=== PATIENT | male | born 1970 | race American Indian/Alaskan Native ===

== ENCOUNTER 2016-12-29 20:15 | Inpatient (IN) | payer SELFPAY ==
[2016-12-29] MEDS ORDERED: ASPIRIN PO ONE (20:58)
[2016-12-29 21:23] LABS: Basophils % (Auto) 0.9 % (0.0-1.8); Eosinophils % (Auto) 2.3 % (0.0-4.3); Mean Corpuscular HGB Conc 31 % (32-34); Platelet Count 269 K/mm3 (140-440); Red Blood Count 6.37 M/mm3 (3.65-5.03); Red Cell Distribution Width 14.9 % (13.2-15.2)
[2016-12-29 21:24] LABS: Hematocrit 41.4 % (35.5-45.6); Hemoglobin 12.6 gm/dl (11.8-15.2); Mean Corpuscular Volume 65 fl (84-94)
[2016-12-29 21:25] LABS: Mean Corpuscular Hemoglobin 20 pg (28-32)
[2016-12-29 21:33] LABS: INR 1.02 (0.87-1.13); Partial Thromboplastin Time 25.8 Sec. (24.2-36.6)
[2016-12-29 21:39] LABS: Alanine Aminotransferase 11 units/L (7-56); Albumin 4.6 g/dL (3.9-5); Albumin/Globulin Ratio 1.2 %; Alkaline Phosphatase 57 units/L (35-129); Anion Gap 17 mmol/L; Blood Urea Nitrogen 18 mg/dL (9-20); Calcium 9.8 mg/dL (8.4-10.2); Carbon Dioxide 29 mmol/L (22-30); Chloride 99.7 mmol/L (98-107); Glucose 101 mg/dL (75-100); Potassium 4.5 mmol/L (3.6-5.0); Sodium 141 mmol/L (137-145); Total Protein 8.5 g/dL (6.3-8.2)
--- NOTE | 2016-12-29 22:07 | Emergency Department Report ---
ED Chest Pain HPI - General Chief Complaint: Chest Pain Stated Complaint: CHEST PAIN Time Seen by Provider: 12/29/16 22:06 Source: patient Mode of arrival: Ambulatory Limitations: No Limitations - History of Present Illness Initial Comments: Patient is a 46-year-old male who presents with crushing substernal chest pain. Has been going on for the last 2 days. Patient states that the pain as an 8 out 10 nothing that he does makes it better or worse with a pressure-type of feeling this concept. It radiates to his left shoulder. He denies having any shortness of breath with the pain. He also states that he has a family history of heart attacks and his grandfather, his father and his older brother have all around at the age of 60 for massive MIs. The patient denies any nausea or vomiting. Severity scale (0 -10): 8 - Related Data Home Medications Medication Instructions Recorded Confirmed Last Taken No Known Home Medications [No 12/29/16 12/29/16 Unknown Reported Home Medications] Allergies Allergy/AdvReac Type Severity Reaction Status Date / Time No Known Allergies Allergy Verified 12/29/16 22:07 Heart Score - HEART Score History: Moderately suspicious EKG: Non-specific Age: 45-65 Risk factors: 1-2 risk factors Troponin: < normal limit HEART Score: 4 ED Review of Systems ROS: Stated complaint: CHEST PAIN Other details as noted in HPI Constitutional: denies: chills, fever Eyes: denies: eye pain, eye discharge, vision change ENT: denies: ear pain, throat pain Respiratory: denies: cough, shortness of breath, wheezing Cardiovascular: chest pain. denies: palpitations Endocrine: no symptoms reported Gastrointestinal: denies: abdominal pain, nausea, diarrhea Genitourinary: denies: urgency, dysuria Musculoskeletal: denies: back pain, joint swelling, arthralgia Skin: denies: rash, lesions Neurological: denies: headache, weakness, paresthesias Psychiatric: denies: anxiety, depression Hematological/Lymphatic: denies: easy bleeding, easy bruising ED Past Medical Hx - Past Medical History Previous Medical History?: Yes Hx GERD: Yes Additional medical history: gout - Surgical History Past Surgical History?: No - Social History Smoking Status: Never Smoker Substance Use Type: None - Medications Home Medications: Home Medications Medication Instructions Recorded Confirmed Last Taken Type No Known Home Medications [No 12/29/16 12/29/16 Unknown History Reported Home Medications] ED Physical Exam - General Limitations: No Limitations General appearance: alert, in no apparent distress - Head Head exam: Present: atraumatic, normocephalic - Eye Eye exam: Present: normal appearance - ENT ENT exam: Present: mucous membranes moist - Neck Neck exam: Present: normal inspection - Respiratory Respiratory exam: Present: normal lung sounds bilaterally. Absent: respiratory distress - Cardiovascular Cardiovascular Exam: Present: regular rate, normal rhythm. Absent: systolic murmur, diastolic murmur, rubs, gallop - GI/Abdominal GI/Abdominal exam: Present: soft, normal bowel sounds - Rectal Rectal exam: Present: deferred - Extremities Exam Extremities exam: Present: normal inspection - Back Exam Back exam: Present: normal inspection - Neurological Exam Neurological exam: Present: alert, oriented X3 - Psychiatric Psychiatric exam: Present: normal affect, normal mood - Skin Skin exam: Present: warm, dry, intact, normal color. Absent: rash ED Course Vital Signs 12/29/16 12/29/16 12/30/16 20:51 21:27 01:44 Temperature 98.3 F Pulse Rate 65 58 L 64 Respiratory 14 13 19 Rate Blood Pressure 156/96 O2 Sat by Pulse 99 99 97 Oximetry - Reevaluation(s) Reevaluation #1: 12/30/16 03:05 Patient states that he does not want a CT angiogram. Due to the risks of IV contrast. Explained benefits of CT angiogram the patient still refused. Patient is alert and oriented and can make his own decisions. AMY score - Amy Score Age > 65: (0) No Aspirin use within the Past 7 Days: (0) No 3 or more CAD Risk Factors: (1) Yes 2 or more Angina events in past 24 hrs: (0) No Known CAD with more than 50% Stenosis: (0) No Elevated Cardiac Markers: (0) No ST Deviation Greater than 0.5mm: (0) No AMY Score: 1 ED Medical Decision Making - Lab Data Result diagrams: 12/29/16 21:11 12/29/16 21:11 Laboratory Results - last 24 hr 12/29/16 12/29/16 12/29/16 21:11 21:11 21:11 WBC 10.0 RBC 6.37 H Hgb 12.6 Hct 41.4 MCV 65 L MCH 20 L MCHC 31 L RDW 14.9 Plt Count 269 Lymph % (Auto) 31.1 [place] % (Auto) 6.4 Eos % (Auto) 2.3 Baso % (Auto) 0.9 Lymph # 3.1 [place] # 0.6 Eos # 0.2 Baso # 0.1 Seg Neutrophils % 59.3 Seg Neutrophils # 6.0 PT 13.9 INR 1.02 APTT 25.8 Sodium Potassium Chloride Carbon Dioxide Anion Gap BUN Creatinine Estimated GFR BUN/Creatinine Ratio Glucose Calcium Total Bilirubin AST ALT Alkaline Phosphatase Total Creatine Kinase Troponin T < 0.010 Total Protein Albumin Albumin/Globulin Ratio 12/29/16 12/30/16 12/30/16 21:11 00:51 02:13 WBC RBC Hgb Hct MCV MCH MCHC RDW Plt Count Lymph % (Auto) [place] % (Auto) Eos % (Auto) Baso % (Auto) Lymph # [place] # Eos # Baso # Seg Neutrophils % Seg Neutrophils # PT INR APTT Sodium 141 Potassium 4.5 Chloride 99.7 Carbon Dioxide 29 Anion Gap 17 BUN 18 Creatinine 1.2 Estimated GFR > 60 BUN/Creatinine Ratio 15.00 Glucose 101 H Calcium 9.8 Total Bilirubin 0.60 AST 14 ALT 11 Alkaline Phosphatase 57 Total Creatine Kinase 64 Troponin T < 0.010 < 0.010 Total Protein 8.5 H Albumin 4.6 Albumin/Globulin Ratio 1.2 - EKG Data -: EKG Interpreted by Me - EKG Data 12/29/16 22:07 Age he shows normal sinus rhythm. LVH. No ST segment elevations or T-wave abnormalities. - Medical Decision Making Chief medical diagnosis: Non-STEMI Differential medical diagnosis aortic dissection, hypertensive urgency, acute coronary syndrome hypokalemia We'll get CBC, CMP, troponin, EKG, IV morphine and aspirin. Sign due to patient's family history of coronary artery disease will admit patient for ACS rule out. Patient refuses T angiogram so aortic dissection cannot be ruled out discussed patient the risks of not getting the CT angiogram however patient did not want the risks of IV contrast and he states that he is aware of the risk of not getting the scan. Critical care attestation.: If time is entered above; I have spent that time in minutes in the direct care of this critically ill patient, excluding procedure time. ED Disposition Clinical Impression: Hypertensive urgency Chest pain Qualifiers: Chest pain type: unspecified Qualified Code(s): R07.9 - Chest pain, unspecified Disposition: -09 OP ADMIT IP TO THIS HOSP Is pt being admited?: Yes Does the pt Need Aspirin: No Condition: Stable
[2016-12-29] MEDS ORDERED: NACL ONE (23:56)
[2016-12-30] MEDS ORDERED: DULCOLAX PR PRN (01:57)
[2016-12-30] MEDS ORDERED: MORPHINE IV PRN (01:57)
[2016-12-30] MEDS ORDERED: ZOFRAN IV PRN (01:57)
[2016-12-30] MEDS ORDERED: TYLENOL PO PRN (01:57)
[2016-12-30] MEDS ORDERED: MILK OF MAGNESIA PO PRN (01:57)
--- NOTE | 2016-12-30 02:01 | History and Physical Report ---
History of Present Illness Date of examination: 12/30/16 History of present illness: 46-year-old man with no medical problems comes emergency room complaining of chest pain located in the epigastric area 1 week. He describes the pain as sharp, intermittent in nature lasting for 3 minutes, intensity 5/10, radiating to the left arm. Admits to nausea 2, shortness breath, palpitation, no diaphoresis Review Of Systems: Constitutional: no fever, chills, weight loss Ears, eyes, nose, mouth and throat: no nasal congestion, no nasal discharge, no sinus pressure, blurry vision, diplopia Neck: No neck pain or rigidity. Cardiovascular: chest pain, orthopnea, palpitations Respiratory: No shortness of breath, cough Gastrointestinal: abdominal pain, hematochezia Genitourinary : no dysuria, frequency , hematuria Musculoskeletal: no joint swelling or muscle ache Integumentary: no rash, no pruritis Neurological: no parathesias, focal weakness Endocrine: no cold or heat intolerance, no polyuria or polydipsia Hematologic/Lymphatic: no easy bruising, no easy bleeding, no gland swelling Allergic/Immunologic: no urticaria, no angioedema. PAST MEDICAL HISTORY: None PAST SURGICAL HISTORY: None FAMILY HISTORY: Hypertension SOCIAL HISTORY: Denies alcohol, tobacco, drugs Medications and Allergies Allergies Allergy/AdvReac Type Severity Reaction Status Date / Time No Known Allergies Allergy Verified 12/29/16 22:07 Home Medications Medication Instructions Recorded Confirmed Last Taken Type No Known Home Medications [No 12/29/16 12/29/16 Unknown History Reported Home Medications] Exam - Physical Exam Narrative exam: Gen. appearance: Patient lying in bed, no apparent distress HEENT: Normocephalic, atraumatic, pupils equally round and reactive to light, extraocular movement intact, and no sclericterus,. No JVD or thyromegaly or nodule,neck supple, no carotid bruit ,mucous membranes moist, no exudate or erythema Heart: S1, S2, regular rate and rhythm Lungs: Clear to auscultation bilaterally, breathing comfortable Abdomen: Positive bowel sounds, nontender, nondistended, no organomegaly Extremity: No edema, cyanosis, clubbing Skin: No rash, nodules, warm, dry Neuro: Oriented 3, cranial nerves II-12 intact, speech is fluent, motor and sensory intact - Constitutional Vitals: Temp Pulse Resp BP Pulse Ox 98.3 F 64 19 156/96 97 12/29/16 20:51 12/30/16 01:44 12/30/16 01:44 12/29/16 20:51 12/30/16 01:44 Results - Labs CBC & Chem 7: 12/29/16 21:11 12/29/16 21:11 Labs: Abnormal lab results 12/29/16 12/29/16 Range/Units 21:11 21:11 RBC 6.37 H (3.65-5.03) M/mm3 MCV 65 L (84-94) fl MCH 20 L (28-32) pg MCHC 31 L (32-34) % Glucose 101 H (75-100) mg/dL Total Protein 8.5 H (6.3-8.2) g/dL - Imaging and Cardiology EKG: image reviewed Chest x-ray: image reviewed Assessment and Plan Assessment Hypertensive urgency Chest pain secondary to #1 Plan Admit to medicine Check cardiac enzymes, lipid profile, stress test Start IV hydralazine for blood pressure control, aspirin, DVT prophylaxis
[2016-12-30 02:52] LABS: Creatine Kinase 64 units/L (55-170)
[2016-12-30 03:10] LABS: Creatine Kinase MB < 1.0 ng/mL (0.0-4.0)
[2016-12-30] MEDS ORDERED: APRESOLINE IV PRN (04:42)
[2016-12-30] MEDS ORDERED: LEXISCAN IV ONE ×2 (06:49→10:33)
--- NOTE | 2016-12-30 07:54 | Progress Note ---
Assessment and Plan Assessment and plan: Chest Pain Admit to Telemetry floor for continues cardiac monitoring EKG Normal Sinus rhythm at this time but we will also get another EKG in ordred for any changes that have taken since the first one. Negative cardiac enzyme X3 Started on Aspirin and nitroglycerin when necessary Stress test pending IV Fluid Hydration Closely monitor patient Hypertensive Urgency Started on antihypertensive medications IV hydrazine for SBP>160 Tobacco abuse Smoking cessation counseling done patient strongly advised to quit. DVT prophylaxis [facility] Hospitalist Physical - Constitutional Vitals: Temp Pulse Resp BP Pulse Ox 98.3 F 66 14 131/65 100 12/29/16 20:51 12/30/16 05:01 12/30/16 05:01 12/30/16 05:01 12/30/16 05:01 Results - Labs CBC & Chem 7: 12/29/16 21:11 12/29/16 21:11 Labs: Laboratory Last Values WBC 10.0 K/mm3 (4.5-11.0) 12/29/16 21:11 RBC 6.37 M/mm3 (3.65-5.03) H 12/29/16 21:11 Hgb 12.6 gm/dl (11.8-15.2) 12/29/16 21:11 Hct 41.4 % (35.5-45.6) 12/29/16 21:11 MCV 65 fl (84-94) L 12/29/16 21:11 MCH 20 pg (28-32) L 12/29/16 21:11 MCHC 31 % (32-34) L 12/29/16 21:11 RDW 14.9 % (13.2-15.2) 12/29/16 21:11 Plt Count 269 K/mm3 (140-440) 12/29/16 21:11 Lymph % (Auto) 31.1 % (13.4-35.0) 12/29/16 21:11 [place] % (Auto) 6.4 % (0.0-7.3) 12/29/16 21:11 Eos % (Auto) 2.3 % (0.0-4.3) 12/29/16 21:11 Baso % (Auto) 0.9 % (0.0-1.8) 12/29/16 21:11 Lymph # 3.1 K/mm3 (1.2-5.4) 12/29/16 21:11 [place] # 0.6 K/mm3 (0.0-0.8) 12/29/16 21:11 Eos # 0.2 K/mm3 (0.0-0.4) 12/29/16 21:11 Baso # 0.1 K/mm3 (0.0-0.1) 12/29/16 21:11 Seg Neutrophils % 59.3 % (40.0-70.0) 12/29/16 21:11 Seg Neutrophils # 6.0 K/mm3 (1.8-7.7) 12/29/16 21:11 PT 13.9 Sec. (12.2-14.9) 12/29/16 21:11 INR 1.02 (0.87-1.13) 12/29/16 21:11 APTT 25.8 Sec. (24.2-36.6) 12/29/16 21:11 Sodium 141 mmol/L (137-145) 12/29/16 21:11 Potassium 4.5 mmol/L (3.6-5.0) 12/29/16 21:11 Chloride 99.7 mmol/L (98-107) 12/29/16 21:11 Carbon Dioxide 29 mmol/L (22-30) 12/29/16 21:11 Anion Gap 17 mmol/L 12/29/16 21:11 BUN 18 mg/dL (9-20) 12/29/16 21:11 Creatinine 1.2 mg/dL (0.8-1.5) 12/29/16 21:11 Estimated GFR > 60 ml/min 12/29/16 21:11 BUN/Creatinine Ratio 15.00 % 12/29/16 21:11 Glucose 101 mg/dL (75-100) H 12/29/16 21:11 Calcium 9.8 mg/dL (8.4-10.2) 12/29/16 21:11 Total Bilirubin 0.60 mg/dL (0.1-1.2) 12/29/16 21:11 AST 14 units/L (5-40) 12/29/16 21:11 ALT 11 units/L (7-56) 12/29/16 21:11 Alkaline Phosphatase 57 units/L (35-129) 12/29/16 21:11 Total Creatine Kinase 64 units/L (55-170) 12/30/16 02:13 CK-MB (CK-2) < 1.0 ng/mL (0.0-4.0) 12/30/16 02:13 CK-MB (CK-2) Rel Index 1.5 (0-4) 12/30/16 02:13 Troponin T < 0.010 ng/mL (0.00-0.029) 12/30/16 04:59 Total Protein 8.5 g/dL (6.3-8.2) H 12/29/16 21:11 Albumin 4.6 g/dL (3.9-5) 12/29/16 21:11 Albumin/Globulin Ratio 1.2 % 12/29/16 21:11 Triglycerides 144 mg/dL (2-149) 12/30/16 04:59 Cholesterol 191 mg/dL (50-199) 12/30/16 04:59 LDL Cholesterol Direct 125 mg/dL (50-130) 12/30/16 04:59 HDL Cholesterol 38 mg/dL (40-59) L 12/30/16 04:59 Cholesterol/HDL Ratio 5.02 % 12/30/16 04:59
[2016-12-30 08:16] LABS: Creatine Kinase 62 units/L (55-170)
--- NOTE | 2016-12-30 09:06 | Admit Criteria Form ---
Admission Criteria Documentation: CARDIOLOGY GRG Clinical Indications for Admission to Inpatient Care ( Place 'X' for any and all applicable criteria): Hospital admission is needed for appropriate care of the patient because of ANY ONE of the following (1): [ ] I. Hemodynamic instability as indicated by ALL of the following (1)(2)(3) (4)(5) [ ]a) Vital signs or other findings not as expected for chronic patient condition or baseline [ ]b) Instability indicated by ANY ONE of the following: [ ]i) Hypotension [ ]ii) Symptomatic Tachycardia unresponsive to treatment ( e.g., analgesia, fluids, sedation as indicated) [ ]iii) Inadequate perfusion indicated by ANY ONE of the following: [ ] 1) Lactic acidosis (> 2 mmol/L) [ ] 2) New abnormal capillary refill (> 3 seconds) [ ] 3) Reduced urine output [ ] 4) New altered mental status [ ]iv) Orthostatic vital sign changes unresponsive to treatment (e.g., fluids) [ ]v) IV inotropic or vasopressor medication required to maintain adequate blood pressure or perfusion [ ] II. Severe heart failure as indicated by ANY ONE of the following(17)(18) [ ]a) Respiratory distress [ ]b) Hypotension [ ]c) Anasarca (refractory to outpatient therapy) [ ]d) Cardiac arrhythmias of immediate concern [ ]e) Myocardial ischemia [ ] III. Cardiac arrhythmias or findings of immediate concern indicated by ANY ONE of the following (19)(20): [ ] a) Heart rhythms that are inherently dangerous or unstable indicated by ANY ONE of the following (21)(22)(23): [ ] i) Resuscitated ventricular fibrillation or cardiac arrest [ ] ii) Ventricular escape rhythm [ ] iii) Sustained ventricular tachycardia (30 seconds or more of ventricular rhythm at greater than 100 beats per minute) [ ] iv) Nonsustained ventricular tachycardia and ANY ONE of the following: [ ] 1) Suspected cardiac ischemia as cause or consequence of ventricular tachycardia [ ] 2) In setting of acute myocarditis [ ] b) Unstable cardiac conduction defects indicated by ANY ONE of the following(23)(24)(25) [ ] i) Type II second-degree atrioventricular block [ ]ii) Third-degree atrioventricular block [ ]iii) New-onset left bundle branch block with suspected myocardial ischemia [ ]c) Any heart rhythm and ANY ONE of the following (21)(22)(26)(27) (28) [ ] i) Continuous long-term ECG monitoring needed (e.g., initiation of drug requiring monitoring for more than 24 hours) [ ] ii) Patient has automatic implanted cardioverter defibrillator that is repeatedly firing, malfunctioning, or in need of immediate adjustment of settings beyond the scope of ambulatory or observation care [ ]d) Heart rhythms of concern due to ANY ONE of the following: [ ] i) Hypotension [ ] ii) Respiratory distress [ ] iii) Association with other significant symptoms (e.g., bradycardia with syncope or ongoing dizziness, supraventricular tachycardia with chest pain (14)(15)(17) [ ] IV. Monitoring for cardiac contusion beyond the scope of observation care needed [A](30)(31)(32) [ ] V. Surgical or device complication (e.g., valve replacement complication , pacemaker dysfunction) (35)(41)(44)(45)(46) [ ] . Inpatient palliative care needed. [B](49) Also use Inpatient Palliative Care Criteria [ ] VII. Nonbacterial thrombotic (marantic) endocarditis (36)(43)(47)(48) [X] VIII. Cardiology condition, symptom, or finding for which emergency and observation care has failed or are not considered appropriate. [ ] IX. Acute valvular disease requiring inpatient as indicated by ANY ONE of the following (41) [ ]a) Acute valvular regurgitation (42) [ ]b) Noninfectious valvulitis (43) [ ]c) Obstructive valve thrombosis [ ]d) Paravalvular leak [ ]e) Other significant valvular disorder remaining after emergency or observation level of care (as appropriate) [ ]X. Pericardial disease requiring inpatient treatment as indicated by ANY ONE of the following (33)(34)(35)(36)(37) [ ]a) Suspected tamponade (38)(39)(40) [ ]b) Hemopericardium [ ]c) Other significant pericardial disorder remaining after emergency or observation level of care (as appropriate) [ ] XI. Cardiac ischemia beyond scope of emergency and observation care. [ ] XII. Hypertension requiring inpatient treatment as indicated by ANY ONE of the following (6)(7)(8) [ ]a) SBP greater than 220 mm Hg or DBP greater than 120 mmHg despite treatment [ ]b) SBP greater than 140 mm Hg or DBP greater than 100 mm Hg with evidence of acute end organ damage as indicated by ANY ONE of the following [ ] i) Altered mental status [ ] ii) Acute renal failure as indicated by new onset of ANY ONE of the following (9)(10)(11)(12)(13) [ ]1) 3-fold rise in serum creatinine from baseline [ ]2) Serum creatinine greater than 4 mg/dL ( 354 micromoles/L) with acute rise greater than 0.5 mg/dL (44.2 micromoles/L) [ ]3) Reduction of more than 75% in estimated glomerular filtration rate from baseline [ ]4) Estimated glomerular filtration rate less than 35 mL/min/1.73m2 (0.59 mL/sec/1.73m2) in child up to 18 years of age [ ]5) Cessation of urine output indicated by ALL of the following [ ]A. Adequate volume status [ ]B. Inadequate urine output as indicated by ANY ONE of the following [ ]a. Urine output less than 0.3 mL/kg/hr for 24 hours [ ]b. Anuria (urine output less than 0.1 mL/kg/hr) for 12 hours [ ] iii) Aortic dissection [ ] iv) Myocardial Ischemia [ ] v) Left ventricular heart failure [ ]vi) Retinal Hemorrhage [ ]vii) Other significant finding [ ]c) Hypertension in child requiring inpatient treatment as indicated by ALL of the following(14)(15)(16) [ ] i) Outpatient treatment not effective, not available, or not appropriate [ ]ii) SBP or DBP greater than 95th percentile for age [ ]iii) Evidence of acute end organ damage as indicated by ANY ONE of the following [ ]1) Altered mental status [ ]2) Acute renal failure as indicated by new onset of ANY ONE of the following(9)(10)(11)(12)(13) [ ]A. 3-fold rise in serum creatinine from baseline [ ]B. Serum creatinine greater than 4 mg/dL (354 micromoles/L) with acute rise greater than 0.5 mg/dL (44.2 micromoles/L) [ ]C. Reduction of more than 75% in estimated glomerular filtration rate from baseline [ ]D. Estimated glomerular filtration rate less than 35 mL/min/1.73m2 (0.59 mL/sec/1.73m2) in child up to 18 years of age [ ]E. Cessation of urine output indicated by ALL of the following [ ]a. Adequate volume status [ ]b. Inadequate urine output as indicated by ANY ONE of the following [ ]i) Urine output less than 0.3 mL/kg/hr for 24 hours [ ]ii) Anuria ( urine output less than 0.1 mL/kg/hr) for 12 hours [ ]3) Severe headache [ ]4) Visual disturbance [ ]5) Retinal hemorrhage [ ]6) Other significant finding [ ]XIII. Complications of transplanted heart indicated by ANY ONE of the following(61): [ ]a) Acute graft rejection requiring inpatient management (eg, intravenous immunosuppression)(62)(63) [ ]b) Acute graft heart failure indicated by ANY ONE of the following(64): [ ]i) Hemodynamic instability [ ]ii) Cardiac arrhythmias of immediate concern [ ]iii) Pulmonary edema that is very severe (eg, mechanical ventilation needed, imminent or likely, need for 100% oxygen to keep oxygen saturation above 90%) [ ]iv) Pulmonary edema that is persistent as indicated by ALL of the following: [ ]1) New need for oxygen therapy to keep oxygen saturation above 90% (or increased FiO2 need from baseline) [ ]2) Has not improved sufficiently with emergency department or observation care IV diuretics or other heart failure treatments[E] [ ]v) Altered mental status that is severe or persistent [ ]vi) Increased creatinine (new on laboratory test) with reduction of more than 50% in estimated glomerular filtration rate from baseline [ ]vii) Progressively (ongoing) rising creatinine (known from past laboratory test) with reduction of more than 25% in estimated glomerular filtration rate from baseline [ ]viii) Acute renal failure [ ]ix) Acute peripheral ischemia (eg, examination shows pulseless, cool, mottled, or cyanotic extremity) [ ]x) Pulmonary artery catheter monitoring needed [ ]xi) Other sign or symptom of heart failure requiring inpatient treatment (ie, too severe or not responsive to outpatient and observation care treatment) [ ]c) Infection requiring inpatient management (eg, Hemodynamic instability, need for intravenous antimicrobial treatment)(66)(67)(68)(69)(70) [ ]d) Cardiac allograft vasculopathy requiring inpatient management ( eg evidence of cardiac ischemia)(71) [ ]e) Other complication of transplanted heart (eg, stroke, severe pulmonary hypertension, severe valvular dysfunction) requiring inpatient management(72) The original [facility] [employer] content created by [employer] has been revised. The portions of the content which have been revised are identified through the use of italic text or in bold, and [facility] has neither reviewed nor approved the modified material. All other unmodified content is copyright [facility] [employer]. Please see references footnoted in the original [facility] [employer] edition 2016 Admission Criteria Met: Yes
[2016-12-30] MEDS ORDERED: LOVENOX SUB-Q SCH ×2 (10:00)
--- NOTE | 2016-12-30 10:16 | Discharge Summary ---
Providers - Providers Date of Admission: 12/30/16 01:57 Date of discharge: 12/30/16 Attending physician: TOD KENNEDY Primary care physician: LORENE LAO MD Hospitalization Condition: Stable Hospital course: 46-year-old man with no medical problems comes emergency room complaining of chest pain located in the epigastric area 1 week. Patient was diagnosed with chest pain and Hypertensive urgency. Patient presented with atypical chest pain , ACS was ruled out,Stress Normal MPI negative cardiac enzymes, CXR was wnl and CTA with no risk for pulmonary embolism. Patient chest pain probably from musculoskeletal or gastritis. He was treated with IV fluid hydration, antihypertensive medications. He is being discharged on oral antihypertensive medication. Patient is clinically improved and stable for discharge. Patient advised to follow-up with her primary care provider. Diagnosed Hypertensive urgency Chest pain Disposition: TO HOME OR SELFCARE Time spent for discharge: 33 minutes Core Measure Documentation - Palliative Care Palliative Care/ Comfort Measures: Not Applicable - Core Measures Any of the following diagnoses?: none Exam - Constitutional Vitals: Temp Pulse Resp BP Pulse Ox 97.5 F L 56 L 18 122/72 99 12/30/16 08:38 12/30/16 08:38 12/30/16 08:38 12/30/16 08:38 12/30/16 08:38 General appearance: Present: no acute distress - EENT Eyes: Present: PERRL ENT: hearing intact - Neck Neck: Present: supple - Respiratory Respiratory effort: normal Respiratory: bilateral: CTA - Cardiovascular Heart rate: 68 Rhythm: regular - Extremities Extremities: no ischemia Peripheral Pulses: within normal limits - Abdominal General gastrointestinal: Present: soft, non-tender Male genitourinary: Present: deferred - Rectal Rectal Exam: deferred - Integumentary Integumentary: Present: clear, warm, dry - Musculoskeletal Musculoskeletal: strength equal bilaterally - Psychiatric Psychiatric: appropriate mood/affect - Neurologic Neurologic: CNII-XII intact - Allied Health Allied health notes reviewed: nursing Plan Activity: no restrictions Weight Bearing Status: Weight Bear as Tolerated Diet: low fat, low cholesterol, low salt Follow up with: PRIMARY CARE, [Primary Care Provider] - 3-5 Days Prescriptions: Hydrochlorothiazide [Hctz] 12.5 mg PO QDAY #60 capsule
[2016-12-30 12:50] VITALS: BP 137/76
--- NOTE | 2016-12-30 23:04 | Treadmill Report ---
THALLIUM STRESS TEST LEFT VENTRICLE: Left ventricular chamber size is within normal. Perfusion study demonstrates homogeneous uptake of the tracer in all segments, no significant perfusion defects identified. Mild diaphragmatic attenuation artifact is noted. Gated analysis demonstrates normal left ventricular systolic function, ejection fraction 65%. CONCLUSION: Normal myocardial perfusion study. JOB# [id number] CA/NTS
== END 2016-12-30 16:35 | disposition home or self-care (01) | DRG 305 ==
LOC: ED 20:15 → 4A 12-30 01:57
PROVIDERS: ADMIT Internal Medicine; ATTEND Hospitalist
PROC: 4A02XM4 Measurement of Cardiac Total Activity, External Approach (ICD-10-PCS; principal; 2016-12-30)
DX: I16.0 Hypertensive urgency (principal); R07.89 Other chest pain; K21.9 Gastro-esophageal reflux disease without esophagitis; Z82.49 Family history of ischemic heart disease and other diseases of the circulatory system
CPT/HCPCS: 36415; 78452; 80053; 80061; 82550; 82553; 84484; 85025; 85610; 85730; 93005; 93010; 93017; A9502; J1650; J2785